=== PATIENT | male | born 1965 | race Caucasian/White ===

== ENCOUNTER → 2016-08-26 | Outpatient (CLI) | payer OTHER, MEDICARE ==
[~2016-08-26] MED LIST: ACYCLOVIR 400M400 MG PO; BACLOFEN 10MG T10 MG PO; BACTRIM DS 8001 TAB PO; DANTRIUM PO; FLAGYL 500MG.500 MG PO; FLORA-Q1 CAP PO; GABAPENTIN 600600 MG PO; GLIPIZIDE ER5 MG PO; JANUVIA50 M1 PO; KEPPRA 500 MG500 MG PO; LEVAQUIN500 MG PO; LIDOCAINE 2% VI1 UDC TP; METFORMIN500 MG PO; MONODOX100 MG PO; ONGLYZA5 MG PO; PRAVASTATIN40 MG PO; PRINIVIL5 MG PO
--- NOTE | 2016-08-26 16:13 | RADIOLOGY REPORT PS360 ---
CHEST(2 VIEWS-NOT PORTABLE) HISTORY: Chest pain RT THORACOLUMBAR PAIN ORDERING PHYSICIAN: Óscar Meyer MD PATIENT AGE: 51 years COMPARISON: 01/04/2011 FINDINGS: The cardiomediastinal silhouette and pulmonary vascularity are within normal limits. Calcified right paratracheal lymph nodes present The lungs are clear without infiltrates, suspicious nodules, or pleural effusions. Postsurgical changes thoracic spine. Miller rods are present along the mid lower thoracic spine. There is old compression changes involving T9. No acute bony anomalies.. Calcified granuloma anterior clear space IMPRESSION: No acute finding. Old granulomatous disease
--- NOTE | 2016-08-26 16:15 | RADIOLOGY REPORT PS360 ---
EXAM: LUMBAR SPINE 5 VIEWS HISTORY: RT THORACOLUMBAR PAIN ORDERING PHYSICIAN: Óscar Meyer MD PATIENT AGE: 51 years COMPARISON: None FINDINGS: Mild levoscoliosis of the thoracic lumbar spine. Miller rods are present of the thoracic spine. There is mild degenerative disc disease at T12-L1 with endplate hypertrophic change. Endplate hypertrophic changes involve additional levels at L3 and L4. Mild facet arthritic changes are present at L5-S1. There are Schmorl's nodes along the superior endplate of L2 and L3. No acute fracture or dislocation. No lytic or blastic change. IMPRESSION: Lumbar spondylosis with scoliosis and facet arthritic change as described above. No acute finding
== END ==
LOC: RAD 15:24
DX: M54.6 Pain in thoracic spine (principal); M54.5 Low back pain